=== PATIENT | male | born 1940 | race Caucasian/White ===

== ENCOUNTER → 2019-08-12 | Outpatient (CLI) | payer MEDICARE, OTHER ==
[~2019-08-12] MED LIST: CEFD300C3 PO
--- NOTE | 2019-08-12 12:49 | Diagnostic Imaging Report ---
INDICATION: Peripheral vascular disease Pressures were obtained in the brachial arteries and in the posterior tibial and dorsalis pedis arteries of the ankle. Ankle brachial index on the right is 1.01. Ankle brachial index on the left is 1.01. IMPRESSION: Normal bilateral ankle brachial indices. Dictated by: Dictated on workstation # [id number]
--- NOTE | 2019-08-12 15:37 | Diagnostic Imaging Report ---
INDICATION: Peripheral vascular disease and left leg pain. Left leg arterial Doppler study performed in routine fashion with color flow Doppler and waveform analysis. There are mild areas of plaquing in the common femoral artery. Flow was biphasic throughout the left lower extremity except for monophasic in the posterior tibial artery. There are no focal high velocity jets or occluded segments. IMPRESSION: No major vessel stenosis or occlusion. Flow converged to monophasic in the posterior tibial artery, compatible with some small vessel disease. Dictated by: Dictated on workstation # [id number]
== END ==
LOC: RAD 09:35
PROVIDERS: ATTEND Nurse Practitioner Family
DX: I73.9 Peripheral vascular disease, unspecified (principal)
CPT/HCPCS: 93922; 93926

== ENCOUNTER 2019-08-14 21:24 | Emergency (ER) | payer MEDICARE, OTHER ==
[~2019-08-14] VITALS: Ht 172 cm; Wt 72.3 kg
[2019-08-14 22:44] LABS: BASOPHILS # (AUTO) 0.1 10^3/uL (0.0-0.1); BASOPHILS % (AUTO) 1 % (0-10); EOSINOPHILS # (AUTO) 0.2 10^3/uL (0.0-0.3); EOSINOPHILS % (AUTO) 2 % (0-10); HEMATOCRIT 46 % (40-54); HEMOGLOBIN 15.4 G/DL (13.3-17.7); LYMPHOCYTES % (AUTO) 21 % (12-44); MEAN CORPUSCULAR HEMOGLOBIN 32 PG (25-34); MEAN CORPUSCULAR HGB CONC 33 G/DL (32-36); MEAN CORPUSCULAR VOLUME 97 FL (80-99); MEAN PLATELET VOLUME 11.4 FL (7.4-10.4); MONOCYTES # (AUTO) 1.4 X 10^3 (0.0-1.0); MONOCYTES % (AUTO) 14 % (0-12); NEUTROPHILS % (AUTO) 62 % (42-75); PLATELET COUNT 234 10^3/uL (130-400); RED CELL DISTRIBUTION WIDTH 13.6 % (10.0-14.5); WHITE BLOOD COUNT 9.7 10^3/uL (4.3-11.0)
[2019-08-14 23:12] LABS: ALANINE AMINOTRANSFERASE 21 U/L (0-55); ALBUMIN 4.5 GM/DL (3.2-4.5); ALKALINE PHOSPHATASE 76 U/L (40-136); BILIRUBIN,TOTAL 0.8 MG/DL (0.1-1.0); BUN/CREATININE RATIO 15; CALCIUM 9.1 MG/DL (8.5-10.1); CARBON DIOXIDE 24 MMOL/L (21-32); CHLORIDE 101 MMOL/L (98-107); CREATININE SERUM 1.09 MG/DL (0.60-1.30); GFR ESTIMATED > 60; GLUCOSE 108 MG/DL (70-105); POTASSIUM 3.2 MMOL/L (3.6-5.0); SODIUM 141 MMOL/L (135-145)
--- NOTE | 2019-08-14 23:25 | ED Cardiac General ---
History of Present Illness General Chief Complaint: Cardiac/General Problems Stated Complaint: B/P HIGH Source: patient, family ([id number]) Exam Limitations: no limitations History of Present Illness Date Seen by Provider: Aug 14, 2019 Time Seen by Provider: 23:10 Initial Comments Patient resents to ER by private conveyance with chief complaint of high blood pressure. His been going up over the last few days 140-170 systolic. Tonight when he measured it at his evening medication dosage he noted to be about 220/110. He takes metoprolol twice daily as well as hydralazine. Couple weeks ago he started getting some redness and swelling in his left lower extremity and his nurse practitioner at [facility] ordered an ultrasound which was normal and put him on antibiotics he suspects doxycycline. He says it was getting better but then when he ran out he followed up with his primary care doctor and they did everything but refill the antibiotics. It started to get worse again and in the last couple days it's gotten red swelling and had a little bit of weeping. His follow-up appointment on Monday, 2 days ago he had another ultrasound ordered outpatient here at the hospital. He has not heard the results because of the holiday. That's when he noticed his blood pressure was going up. He is not having any chest pain shortness of breath nausea fever chills diarrhea dysuria or other symptoms. He doesn't history of peripheral arterial disease. Allergies and Home Medications Allergies Coded Allergies: No Known Drug Allergies (Unverified , 08/14/19) Home Medications Cefdinir 300 Mg Capsule, 300 MG PO BID Prescribed by: MIRTHA MARMOLEJO on 08/15/19 0006 Patient Home Medication List Home Medication List Reviewed: Yes Review of Systems Review of Systems Constitutional: No chills, No diaphoresis EENTM: No Blurred Vision, No Double Vision Respiratory: Denies Cough, Denies Shortness of Air Cardiovascular: Denies Chest Pain, Denies Lightheadedness Gastrointestinal: Denies Constipated, Denies Diarrhea, Denies Nausea Genitourinary: Denies Burning, Denies Discharge Musculoskeletal: No back pain, No joint pain Skin: see HPI Psychiatric/Neurological: Denies Anxiety, Denies Depressed All Other Systems Reviewed Negative Unless Noted: Yes Past Tlvwmhm-Gttcdt-Memzgg Hx Patient Social History Alcohol Use: Denies Use Recreational Drug Use: No Smoking Status: Never a Smoker Recent Foreign Travel: No Contact w/Someone Who Travel: No Physical Exam Vital Signs Capillary Refill : Height, Weight, BMI Height: '" Weight: lbs. oz. kg; BMI Method: General Appearance: No Apparent Distress, WD/WN HEENT: PERRL/EOMI, Pharynx Normal, Moist Mucous Membranes Neck: Full Range of Motion, Normal Inspection, Non Tender, Supple Respiratory: Lungs Clear, Normal Breath Sounds, No Accessory Muscle Use, No Respiratory Distress Cardiovascular: Regular Rate, Rhythm Gastrointestinal: Normal Bowel Sounds, Non Tender, Soft Extremity: Calf Tenderness (left), Swelling (erythema warmth left lower extremity) Neurologic/Psychiatric: Alert, Oriented x3, No Motor/Sensory Deficits, Normal Mood/Affect, customer relations consultant II-XII Norm as Tested Skin: Normal Color, Warm/Dry Progress/Results/Core Measures Results/Orders Lab Results Laboratory Tests Test 08/14/19 22:28 Range/Units White Blood Count 9.7 4.3-11.0 10^3/uL Red Blood Count 4.77 4.35-5.85 10^6/uL Hemoglobin 15.4 13.3-17.7 G/DL Hematocrit 46 40-54 % Mean Corpuscular Volume 97 80-99 FL Mean Corpuscular Hemoglobin 32 25-34 PG Mean Corpuscular Hemoglobin Concent 33 32-36 G/DL Red Cell Distribution Width 13.6 10.0-14.5 % Platelet Count 234 130-400 10^3/uL Mean Platelet Volume 11.4 H 7.4-10.4 FL Neutrophils (%) (Auto) 62 42-75 % Lymphocytes (%) (Auto) 21 12-44 % Monocytes (%) (Auto) 14 H 0-12 % Eosinophils (%) (Auto) 2 0-10 % Basophils (%) (Auto) 1 0-10 % Neutrophils # (Auto) 6.0 1.8-7.8 X 10^3 Lymphocytes # (Auto) 2.0 1.0-4.0 X 10^3 Monocytes # (Auto) 1.4 H 0.0-1.0 X 10^3 Eosinophils # (Auto) 0.2 0.0-0.3 10^3/uL Basophils # (Auto) 0.1 0.0-0.1 10^3/uL Sodium Level 141 135-145 MMOL/L Potassium Level 3.2 L 3.6-5.0 MMOL/L Chloride Level 101 98-107 MMOL/L Carbon Dioxide Level 24 21-32 MMOL/L Anion Gap 16 H 5-14 MMOL/L Blood Urea Nitrogen 16 7-18 MG/DL Creatinine 1.09 0.60-1.30 MG/DL Estimat Glomerular Filtration Rate > 60 BUN/Creatinine Ratio 15 Glucose Level 108 H 70-105 MG/DL Calcium Level 9.1 8.5-10.1 MG/DL Corrected Calcium 8.7 8.5-10.1 MG/DL Total Bilirubin 0.8 0.1-1.0 MG/DL Aspartate Amino Transf (AST/SGOT) 25 5-34 U/L Alanine Aminotransferase (ALT/SGPT) 21 0-55 U/L Alkaline Phosphatase 76 40-136 U/L Troponin I < 0.028 <0.028 NG/ML B-Type Natriuretic Peptide 162.1 H <100.0 PG/ML Total Protein 7.0 6.4-8.2 GM/DL Albumin 4.5 3.2-4.5 GM/DL My Orders Orders - MIRTHA MARMOLEJO Continuous Ekg Monitoring (08/14/19 22:34) Cbc With Automated Diff (08/14/19 22:34) Comprehensive Metabolic Panel (08/14/19 22:34) Troponin I (08/14/19 22:34) BNP (08/14/19 22:34) Ed Iv/Invasive Line Start (08/14/19 22:34) Hydralazine Injection (Apresoline Inject (08/14/19 23:30) Ceftriaxone For Iv Use (Rocephin For I (08/15/19 00:15) Medications Given in ED Current Medications Medications Dose Ordered Sig/Willy Route Start Time Stop Time Status Last Admin Dose Admin Ceftriaxone Sodium 1000 mg/ Sterile Water 10 ml @ 200 mls/hr ONCE ONCE IV 08/15/19 00:15 08/15/19 00:17 DC 08/15/19 00:45 200 MLS/HR Hydralazine HCl 10 mg ONCE ONCE IV 08/14/19 23:30 08/14/19 23:31 DC 08/14/19 23:40 10 MG Progress Progress Note #1: Time: 23:28 Progress Note Hydralazine 10 mg IV. He takes lisinopril and hydralazine as well as metoprolol. Suspect his hypertension which has coincide with the recurrence of his left lower extremity cellulitis are related. He is not having any neurologic sym ptoms. His tyqwmw-vm-wes relates a story that on Monday, 4 days ago he had a transient period of confusion for a few minutes at the [facility]. Could be related to hypertension, TIA etc. We do not have MRI at this time and he is having no neurologic symptoms today. Controlling his blood pressure would be the primary goal at this time. Previous ultrasound from 2 days ago does not demonstrate blood clot. He has no history of blood clots. Plan to give him a dose of Rocephin and put him back on Omnicef 2 times a day. Aseptic vital signs and unremarkable labs. Progress Note #2: Time: 00:04 Progress Note Patient's had a significant decrease in his blood pressure. Will not try to make any greater decrease today. We'll give him a gram or Rocephin and set him up on Omnicef. Initial ECG Impression Date: Aug 14, 2019 Initial ECG Impression Time: 22:34 Initial ECG Rate: 68 Initial ECG Rhythm: Normal Sinus Initial ECG Intervals: QT (528) Initial ECG Impression: Normal Comment Normal sinus rhythm without any relevant ST elevation or depression. Diagnostic Imaging Diagonstic Imaging: Ultrasound Plain Films/CT/US/NM/MRI: leg (left Doppler venous) Comments [facility] [place], [place] NAME: [facility] REC#: [id number] PT STATUS: REG CLI : 1940 PHYSICIAN: LITA CLIFFORD ADMIT DATE: 08/12/19/RAD Signed Date of Exam:08/12/19 US LEFT LOW EXT ARTERIAL [id number] INDICATION: Peripheral vascular disease and left leg pain. Left leg arterial Doppler study performed in routine fashion with color flow Doppler and waveform analysis. There are mild areas of plaquing in the common femoral artery. Flow was biphasic throughout the left lower extremity except for monophasic in the posterior tibial artery. There are no focal high velocity jets or occluded segments. IMPRESSION: No major vessel stenosis or occlusion. Flow converged to monophasic in the posterior tibial artery, compatible with some small vessel disease. Dictated by: Dictated on workstation # [id number] Dict: 08/12/19 1436 Trans: 08/12/19 1659 [facility] [id number] Interpreted by: OSKAR KUMAR MD Electronically signed by: OSKAR KUMAR MD 08/12/19 1659 Reviewed: Reviewed by Me Departure Impression Primary Impression: Hypertension Qualified Codes: I10 - Essential (primary) hypertension Additional Impression: Cellulitis Qualified Codes: L03.116 - Cellulitis of left lower limb Disposition: HOME, SELF-CARE Condition: Improved Departure-Patient Inst. Decision time for Depature: 00:04 Referrals: NO,LOCAL PHYSICIAN (PCP/Family) Primary Care Physician Patient Instructions: Cellulitis (Skin Infection), Adult (DC), High Blood Pressure Emergencies Add. Discharge Instructions: Your blood pressure goes above 200/100 again and stays there despite resting for 15 minutes then you may take an additional dose of hydralazine in the morning. Follow up with your primary care provider for management of your blood pressure. Start taking the Omnicef one capsule twice daily. Follow-up with your primary care doctor next week for reevaluation. Return to the nearest ER if you start to experience fevers, worsening redness despite 2-3 days of antibiotics or other worrisome symptoms. All discharge instructions reviewed with patient and/or family. Voiced understanding. Scripts Cefdinir (Cefdinir) 300 Mg Capsule 300 MG PO BID for 10 Days, #20 CAP 0 Refills Prov: MIRTHA MARMOLEJO 08/15/19 MIRTHA MARMOLEJO Aug 14, 2019 23:25
[2019-08-14] MEDS ORDERED: hydrALAZINE (APESOLINE) 20 MG/ML VIAL IV ONE (23:30)
[2019-08-15] MEDS ORDERED: CEFD300C3 PO (00:06)
[2019-08-15] MEDS ORDERED: cefTRIAXone FOR IV USE 1,000 MG in WATER (STERILE) FOR INJECTION 10 ML IV ONE (00:15)
[2019-08-15 00:46] VITALS: BP 174/91
== END 2019-08-15 00:46 | disposition home or self-care (01) ==
LOC: EDUNIT# 21:24 → ER 21:26
DX: I10 Essential (primary) hypertension (principal); L03.116 Cellulitis of left lower limb
CPT/HCPCS: 36415; 80053; 83880; 84484; 85025; 93005; 96374; 96375

== ENCOUNTER 2019-08-16 00:23 | Emergency (ER) | payer MEDICARE, OTHER ==
[~2019-08-16] VITALS: Ht 172.7 cm; Wt 72.3 kg
--- NOTE | 2019-08-16 02:01 | ED Cardiac General ---
History of Present Illness General Stated Complaint: BLOOD PRESSURE 200/100 Source: patient Exam Limitations: no limitations History of Present Illness Date Seen by Provider: Aug 16, 2019 Time Seen by Provider: 01:45 Initial Comments Patient presents ER by private conveyance with chief complaint that when he was laying down to go to sleep at about midnight he decided he would check his blood pressure. He noted it to be 200/100. Is not having any symptoms. He was seen her e last night by the same provider for his asymptomatic hypertension. He does have cellulitis in his left lower extremity. He noted his heart rate to be high around 100. He denies any fevers in the past week. 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 He took an extra 25 mg of hydralazine at about midnight. He typically takes it in the evening and tonchente's dose was at 1800. He also takes lisinopril. Allergies and Home Medications Allergies Coded Allergies: No Known Drug Allergies (Unverified , 08/14/19) Home Medications Cefdinir 300 Mg Capsule, 300 MG PO BID Prescribed by: MIRTHA MARMOLEJO on 08/15/19 0006 Patient Home Medication List Home Medication List Reviewed: Yes Review of Systems Review of Systems Constitutional: No chills, No diaphoresis, No fever, No malaise EENTM: No Blurred Vision, No Double Vision Respiratory: Denies Cough, Denies Shortness of Air Cardiovascular: Denies Chest Pain, Denies Edema, Denies Irregular Heart Rate Gastrointestinal: Denies Abdomen Distended, Denies Abdominal Pain, Denies Nausea, Denies Poor Fluid Intake, Denies Vomiting Genitourinary: Denies Burning, Denies Discharge, Denies Drainage Musculoskeletal: No back pain, No joint pain Skin: No pruritus, No rash Psychiatric/Neurological: Denies Headache, Denies Numbness, Denies Paresthesia All Other Systems Reviewed Negative Unless Noted: Yes Past Lmckstf-Nbivzd-Kgmpuc Hx Patient Social History Alcohol Use: Regular Use Alcohol Beverage of Choice: Beer Recreational Drug Use: No Smoking Status: Current Everyday Smoker Type Used: Cigarettes Recent Foreign Travel: No Contact w/Someone Who Travel: No Recent Hopitalizations: No Immunizations Up To Date Tetanus Booster (TDap): Less than 5yrs PED Vaccines UTD: Yes Past Medical History Surgeries: Yes Tonsillectomy Respiratory: No Cardiac: Yes Chronic Edema/Swelling, Hypertension, Peripheral Vascular Neurological: No Genitourinary: No Gastrointestinal: No Musculoskeletal: No Endocrine: No HEENT: No Cancer: No Psychosocial: No Integumentary: No Blood Disorders: No Adverse Reaction/Blood Tranf: No Physical Exam Vital Signs Vital Signs - First Documented 08/16/19 01:46 Temp 36.6 Pulse 105 Resp 18 B/P (MAP) 199/100 (133) O2 Delivery Room Air Capillary Refill : Height, Weight, BMI Height: '" Weight: lbs. oz. kg; 24.00 BMI Method: General Appearance: No Apparent Distress, WD/WN HEENT: TMs Normal, Normal ENT Inspection, Pharynx Normal, Moist Mucous Membranes Neck: Full Range of Motion, Normal Inspection, Non Tender, Supple Respiratory: Chest Non Tender, Lungs Clear, Normal Breath Sounds, No Accessory Muscle Use, No Respiratory Distress Cardiovascular: Regular Rate, Rhythm, No Gallop, Normal Peripheral Pulses Gastrointestinal: Normal Bowel Sounds, Non Tender, Soft Extremity: Normal Capillary Refill, Other (mild erythema, warmth and tenderness to the left lower extremity/calf) Neurologic/Psychiatric: Alert, Oriented x3, No Motor/Sensory Deficits, Normal Mood/Affect Skin: Erythema (left lower extremity) Progress/Results/Core Measures Results/Orders Lab Results Laboratory Tests Test 08/16/19 01:55 Range/Units White Blood Count 9.5 4.3-11.0 10^3/uL Red Blood Count 4.48 4.35-5.85 10^6/uL Hemoglobin 14.5 13.3-17.7 G/DL Hematocrit 43 40-54 % Mean Corpuscular Volume 96 80-99 FL Mean Corpuscular Hemoglobin 32 25-34 PG Mean Corpuscular Hemoglobin Concent 34 32-36 G/DL Red Cell Distribution Width 13.3 10.0-14.5 % Platelet Count 234 130-400 10^3/uL Mean Platelet Volume 11.4 H 7.4-10.4 FL Neutrophils (%) (Auto) 62 42-75 % Lymphocytes (%) (Auto) 22 12-44 % Monocytes (%) (Auto) 14 H 0-12 % Eosinophils (%) (Auto) 2 0-10 % Basophils (%) (Auto) 1 0-10 % Neutrophils # (Auto) 5.9 1.8-7.8 X 10^3 Lymphocytes # (Auto) 2.0 1.0-4.0 X 10^3 Monocytes # (Auto) 1.3 H 0.0-1.0 X 10^3 Eosinophils # (Auto) 0.2 0.0-0.3 10^3/uL Basophils # (Auto) 0.1 0.0-0.1 10^3/uL Sodium Level 141 135-145 MMOL/L Potassium Level 3.0 L 3.6-5.0 MMOL/L Chloride Level 103 98-107 MMOL/L Carbon Dioxide Level 22 21-32 MMOL/L Anion Gap 16 H 5-14 MMOL/L Blood Urea Nitrogen 12 7-18 MG/DL Creatinine 1.08 0.60-1.30 MG/DL Estimat Glomerular Filtration Rate > 60 BUN/Creatinine Ratio 11 Glucose Level 121 H 70-105 MG/DL Calcium Level 9.1 8.5-10.1 MG/DL Corrected Calcium 8.9 8.5-10.1 MG/DL Total Bilirubin 0.7 0.1-1.0 MG/DL Aspartate Amino Transf (AST/SGOT) 19 5-34 U/L Alanine Aminotransferase (ALT/SGPT) 19 0-55 U/L Alkaline Phosphatase 68 40-136 U/L Troponin I < 0.028 <0.028 NG/ML C-Reactive Protein High Sensitivity 0.11 0.00-0.50 MG/DL B-Type Natriuretic Peptide 148.9 H <100.0 PG/ML Total Protein 6.9 6.4-8.2 GM/DL Albumin 4.3 3.2-4.5 GM/DL My Orders Orders - MIRTHA MARMOLEJO Ed Iv/Invasive Line Start (08/16/19 01:52) Cbc With Automated Diff (08/16/19 01:52) Comprehensive Metabolic Panel (08/16/19 01:52) Hs C Reactive Protein (08/16/19 01:52) Troponin I (08/16/19 01:52) BNP (08/16/19 01:52) Continuous Ekg Monitoring (08/16/19 01:52) Ekg Tracing (08/16/19 01:52) Chest 1 View, Ap/Pa Only (08/16/19 01:52) Potassium Chloride (Tablet) (K Dur Table (08/16/19 03:00) Vital Signs/I&O 08/16/19 01:46 Temp 36.6 Pulse 105 Resp 18 B/P (MAP) 199/100 (133) O2 Delivery Room Air Progress Progress Note #1: Time: 02:11 Progress Note Patient's cellulitis in his left lower extremity seems to be improving even after 1 day of antibiotics. He checked his blood pressure for no apparent reason and its elevated. He did be appropriate thing he was instructed to do an took hydralazine and then found his way to the ER. We'll check some labs chest x-ray but he is not endorsing any other symptoms. After just a short while and initiating an IV his blood pressure is already down to an acceptable 177/97. Progress Note #2: Time: 03:02 Progress Note With no intervention other than rest the patient's blood pressure has steadily declined down to 150/99. Labs checked out. His cellulitis is getting better. We'll recommend he follow up with his primary care provider for his hypertension. If he has any symptoms or encourage return to the ER. He may double up his hydralazine temporarily if he is having elevated blood pressure above 200/100. Initial ECG Impression Date: Aug 16, 2019 Initial ECG Impression Time: 01:59 Initial ECG Rate: 85 Initial ECG Rhythm: Normal Sinus Initial ECG Intervals: QT (485) Initial ECG Impression: Normal, Nonspecific Changes Initial ECG Comparisson: Unchanged Comment 1/2-[address] depression in the lateral leads consistent with previous EKG from 08/14/2019. No other clinically relevant ST elevation or depression. Diagnostic Imaging Diagonstic Imaging: Xray Plain Films/CT/US/NM/MRI: chest (1v) Comments Mild central congestion versus scarring Reviewed: Reviewed by Me Departure Impression Primary Impression: Asymptomatic hypertension Additional Impression: Cellulitis and abscess of left lower extremity Disposition: 01 HOME, SELF-CARE Condition: Stable Departure-Patient Inst. Decision time for Depature: 03:03 Referrals: NO,LOCAL PHYSICIAN (PCP/Family) Primary Care Physician Patient Instructions: High Blood Pressure in Adults, Cellulitis (Skin Infection), Adult (DC) Add. Discharge Instructions: Continue taking medications as prescribed. Check your blood pressure once daily after being at rest for at least 15 minutes. Record this number and a log and take it with you to your primary care doctor in the next week or 2 to adjust your blood pressure medications as necessary. If your blood pressure is above 200/100 and you're not having any symptoms you may take one extra dose of hydralazine that day. Give 2-3 hours of medication to start working. If you start to have symptoms such as chest pain, shortness of breath, slurred speech, facial droop or other worrisome findings then please return to the ER immediately. Continue taking the antibiotics as prescribed and keep a follow-up appointment in 1-2 weeks with your primary care provider. MIRTHA MARMOLEJO Aug 16, 2019 02:01
[2019-08-16 02:03] LABS: BASOPHILS # (AUTO) 0.1 10^3/uL (0.0-0.1); BASOPHILS % (AUTO) 1 % (0-10); EOSINOPHILS # (AUTO) 0.2 10^3/uL (0.0-0.3); EOSINOPHILS % (AUTO) 2 % (0-10); HEMATOCRIT 43 % (40-54); HEMOGLOBIN 14.5 G/DL (13.3-17.7); LYMPHOCYTES % (AUTO) 22 % (12-44); MEAN CORPUSCULAR HEMOGLOBIN 32 PG (25-34); MEAN CORPUSCULAR HGB CONC 34 G/DL (32-36); MEAN CORPUSCULAR VOLUME 96 FL (80-99); MEAN PLATELET VOLUME 11.4 FL (7.4-10.4); MONOCYTES # (AUTO) 1.3 X 10^3 (0.0-1.0); MONOCYTES % (AUTO) 14 % (0-12); NEUTROPHILS # (AUTO) 5.9 X 10^3 (1.8-7.8); NEUTROPHILS % (AUTO) 62 % (42-75); PLATELET COUNT 234 10^3/uL (130-400); RED CELL DISTRIBUTION WIDTH 13.3 % (10.0-14.5); WHITE BLOOD COUNT 9.5 10^3/uL (4.3-11.0)
[2019-08-16 02:23] LABS: ALANINE AMINOTRANSFERASE 19 U/L (0-55); ALBUMIN 4.3 GM/DL (3.2-4.5); ALKALINE PHOSPHATASE 68 U/L (40-136); BILIRUBIN,TOTAL 0.7 MG/DL (0.1-1.0); BUN/CREATININE RATIO 11; CALCIUM 9.1 MG/DL (8.5-10.1); CARBON DIOXIDE 22 MMOL/L (21-32); CHLORIDE 103 MMOL/L (98-107); CREATININE SERUM 1.08 MG/DL (0.60-1.30); GFR ESTIMATED > 60; GLUCOSE 121 MG/DL (70-105); SODIUM 141 MMOL/L (135-145); TOTAL PROTEIN 6.9 GM/DL (6.4-8.2)
[2019-08-16] MEDS ORDERED: KCL 20 MEQ TAB (K-DUR) PO ONE (03:00)
[2019-08-16 03:20] VITALS: BP 145/86
--- NOTE | 2019-08-16 06:42 | Diagnostic Imaging Report ---
INDICATION: Hypertension. Portable chest 2:18 AM Heart size and pulmonary vascularity are normal. Lungs are clear. There are no effusions or pneumothoraces. IMPRESSION: Negative chest. Dictated by: Dictated on workstation # [id number]
== END 2019-08-16 03:20 | disposition home or self-care (01) ==
LOC: EDUNIT# 00:23 → ER 00:25
DX: I10 Essential (primary) hypertension (principal); L03.116 Cellulitis of left lower limb; L02.416 Cutaneous abscess of left lower limb; F17.210 Nicotine dependence, cigarettes, uncomplicated; Z90.89 Acquired absence of other organs
CPT/HCPCS: 36415; 71045; 80053; 83880; 84484; 85025; 86141; 93005